=== PATIENT | male | born 1960 | race Caucasian/White ===

== ENCOUNTER → 2020-03-05 15:11 | Outpatient (CLI) | payer OTHER, SELFPAY ==
--- NOTE | 2020-03-05 | DI.CT.S_ITS ---
PROCEDURE: CT CHEST HIGH RESOLUTION INDICATIONS: Other disorders of lung TECHNIQUE: Noncontrast 1.0 and 5.0 mm thick contiguous axial sections from the pulmonary apex to the posterior costophrenic angles, with 7 mm thick coronal and sagittal MIP reformats. 1 mm thick dynamic expiratory images acquired through the upper, mid, and lower lungs. 1.0 mm thick axial sections acquired from the jackie to the posterior costophrenic angles in the prone end-inspiration position. For radiation dose reduction, the following was used: automated exposure control, adjustment of mA and/or kV according to patient size. COMPARISON: None. FINDINGS: Image quality: Excellent. Lungs: There is slight interstitial prominence, but without a pulmonary fibrosis pattern or evidence of underlying alveolitis. The appearance could represent a manifestation of prior smoking history. No lung mass is found, no active inflammatory process is seen and no mediastinal or hilar adenopathy is found. Pleura: No pleural effusions or pneumothorax. Mediastinum: Heart size is normal. No pericardial effusion. Thoracic aorta and central pulmonary arteries are normal in size. Esophagus is normal in caliber. Bones and chest wall: No suspicious bony lesions. No vertebral body compression fractures. Abdomen: Visualized upper abdominal solid organs and bowel loops appear normal. IMPRESSION: Source of current symptoms is not found. The appearance of the lung parenchyma includes a small degree of interstitial prominence, but without evidence of active alveolitis or pulmonary fibrosis. Possible prior smoking history, please consider obtaining pulmonary function tests to determine whether mild centrilobular emphysema could be present. No underlying active infection or neoplasm is suspected. Dictated by: Rory Santamaria M.D. on 03/05/2020 at 16:52 Approved by: Rory Santamaria M.D. on 03/05/2020 at 17:03
== END ==
PROVIDERS: PCP Physician Assistant; Referring Provider Physician Assistant; Visit Provider Physician Assistant
DX: J98.4 Other disorders of lung (principal); R91.8 Other nonspecific abnormal finding of lung field
CPT/HCPCS: 71250

== ENCOUNTER → 2023-08-04 12:20 | Outpatient (CLI) | payer OTHER, SELFPAY ==
--- NOTE | 2023-08-04 12:24 | DI.RAD.S_ITS ---
PROCEDURE: XR CERVICAL SPINE 2V OR 3V INDICATIONS: CERVICAL RADICULOPATHY TECHNIQUE: 3 view(s) of the cervical spine were acquired. COMPARISON: None. FINDINGS: Bones: No fractures or dislocations to the T1 level. The lateral masses of C1 appear intact on the odontoid view. Cervical spondylitic change with multilevel disc height loss and uncovertebral joint osteophytes. There is multilevel facet arthropathy, prominent on the left. No suspicious bony lesions. Soft tissues: No prevertebral soft tissue swelling. IMPRESSION: Cervical spondylosis. Dictated by: Gurmeet Cruz M.D. on 08/04/2023 at 14:54 Approved by: Gurmeet Cruz M.D. on 08/04/2023 at 14:55
== END ==
PROVIDERS: PCP Physician Assistant; Referring Provider Family Medicine; Visit Provider Family Medicine
DX: M47.22 Other spondylosis with radiculopathy, cervical region (principal)
CPT/HCPCS: 72040

== ENCOUNTER → 2024-11-22 08:45 | Outpatient (CLI) | payer OTHER, SELFPAY | LOC: PHYS 08:46 | PROVIDERS: Family Provider Family Medicine; PCP Family Medicine; Referring Provider Orthopaedic Surgery; Visit Provider Orthopaedic Surgery | DX: G56.03 Carpal tunnel syndrome, bilateral upper limbs (principal) | CPT/HCPCS: 95885; 95886; 95913 ==

== ENCOUNTER → 2024-12-20 16:54 | Outpatient (CLI) | payer OTHER, SELFPAY ==
--- NOTE | 2024-12-20 16:56 | DI.MRI.S_ITS ---
PROCEDURE: MR WRIST RT WO CON
== END ==
LOC: MRI 16:56
PROVIDERS: PCP Family Medicine; Referring Provider Orthopaedic Surgery; Visit Provider Orthopaedic Surgery
DX: S62.121A Displaced fracture of lunate [semilunar], right wrist, initial encounter for closed fracture (principal); M19.031 Primary osteoarthritis, right wrist; M25.431 Effusion, right wrist; M65.931 Unspecified synovitis and tenosynovitis, right forearm
CPT/HCPCS: 73221